=== PATIENT | male | born 1980 | race Caucasian/White ===

== ENCOUNTER 2019-04-29 19:08 | Emergency (ER) | payer OTHER, SELFPAY ==
--- NOTE | 2019-04-29 19:21 | ED.EAR ---
HPI - Ear Problem General Stated complaint: pressure in ear Time Seen by Provider: 04/29/19 19:21 Source: patient and RN notes reviewed History of Present Illness HPI Narrative: Patient is a 38-year-old male that presents the urgent care with complaints of left ear pressure that started 2 days ago. Patient states he has been taking ibuprofen without any relief. Denies of any drainage, fever, nausea, vomiting. No other acute complaints. No acute distress noted. Related Data Allergies Allergy/AdvReac Type Severity Reaction Status Date / Time No Known Allergies Allergy Unknown Verified 07/20/15 11:51 Review of Systems Review of Systems: Narrative: CONSTITUTIONAL: Denies fever, chills, or sweats. EYES: Denies visual changes, redness, or discharge. ENT: Reports of right ear pressure CARDIOVASCULAR: Denies chest pain, palpitations, or edema. RESPIRATORY: Denies cough or dyspnea. GASTROINTESTINAL: Denies abdominal pain, nausea, vomiting, or diarrhea. GENITOURINARY: Denies dysuria or hematuria. SKIN: Denies rash or itching. MUSCULOSKELETAL: Denies back pain, joint pain, or myalgia. NEUROLOGIC: Denies headache, numbness, or weakness. All other systems reviewed are negative, except as documented in HPI. PMFSH Comments At the time of my signature, I reviewed and agree with the nursing past medical, surgical, social, and family history. There is no relevant family history pertinent to the patient complaint. Exam Narrative: Exam Narrative: GENERAL: This is a well-nourished, well-developed patient, in no apparent distress. HEAD: normocephalic, atraumatic. EYES: PERRL. Sclera clear/white. Vision is grossly intact. EARS: External ears normal, auditory canals clear and without drainage, moderate fluid noted behind left TM without otitis, right TMs normal without perforation. Hearing grossly intact. NOSE: External nose normal with no obvious nasal discharge, nares without redness, no rhinorrhea. THROAT: Mucous membranes moist, posterior pharynx clear. NECK: Neck supple CARDIOVASCULAR: Regular rate and rhythm without murmurs, gallops, or rubs. RESPIRATORY: Clear to auscultation. Breath sounds equal bilaterally. No wheezes, rales, or rhonchi. SKIN: warm, intact with no suspicious lesions or rash, good texture and turgor. NEURO: awake, alert, and oriented to person, place and time. There were no obvious focal neurologic abnormalities. EXTREMITIES: No clubbing, cyanosis, or edema. Course Vital Signs Vital signs: Vital Signs Temperature 98.4 F 04/29/19 19:24 Pulse Rate 56 L 04/29/19 19:24 Respiratory Rate 20 04/29/19 19:24 Blood Pressure 120/71 04/29/19 19:24 Pulse Oximetry 98 04/29/19 19:24 Temperature 98.4 F 04/29/19 19:24 Pulse Rate 56 L 04/29/19 19:24 Respiratory Rate 20 04/29/19 19:24 Blood Pressure 120/71 04/29/19 19:24 Pulse Oximetry 98 04/29/19 19:24 Reviewed Medical Decision Making MDM Narrative Medical decision making narrative: Advised the patient to use Claritin or Zyrtec in conjunction with Flonase nasal spray for sinus symptom relief and ear pressure. Use Tylenol/ibuprofen and a warm compress to the left ear for comfort. Follow-up with PCP within 2 to 5 days or for worsening symptoms or failure to improve. Differential Diagnosis Differential Diagnosis: Pneumonia, Allergic Rhinitis, Upper respiratory cough syndrome, Pharyngitis, Sinusitis, Bronchitis, otitis media, viral URI, Asthma/reactive airway disease, COPD, emphysema Vital Signs Vital Signs: Vital Signs Temperature 98.4 F 04/29/19 19:24 Pulse Rate 56 L 04/29/19 19:24 Respiratory Rate 20 04/29/19 19:24 Blood Pressure 120/71 04/29/19 19:24 Pulse Oximetry 98 04/29/19 19:24 Temperature 98.4 F 04/29/19 19:24 Pulse Rate 56 L 04/29/19 19:24 Respiratory Rate 04/29/19 19:24 Blood Pressure 120/71 04/29/19 19:24 Pulse Oximetry 98 04/29/19 19:24 Critical Care Time Critical Care Time Critical Care
[2019-04-29 19:24] VITALS: BP 120/71; PULSE 56; RESP 20; TEMP 36.9; O2SAT 98
== END 2019-04-29 19:56 | disposition home or self-care (01) ==
PROVIDERS: Emergency Provider Nurse Practitioner Family
DX: H92.02 Otalgia, left ear (principal)
CPT/HCPCS: 99201; G0463

== ENCOUNTER 2019-12-14 07:26 | Outpatient (CLI) | payer BC, SELFPAY ==
[2019-12-14 07:39] LABS: Hematocrit 42.2 % (40.0-54.0); Hemoglobin 13.9 g/dL (14.0-18.0); Mean Corpuscular HGB Conc 32.9 g/dL (32.0-36.0); Mean Corpuscular Hemoglobin 29.4 pg (27.0-31.0); Mean Corpuscular Volume 89.2 fL (78.0-102.0); Mean Platelet Volume 10.2 fl (8.7-11.0); Platelet Count Result 150 K/mm3 (150-420); Red Blood Count 4.73 M/mm3 (4.70-6.10); Red Cell Distribution Width 12.5 % (11.6-14.4); White Blood Count 5.9 K/mm3 (4.8-10.8)
[2019-12-14 08:56] LABS: Alanine Aminotransferase 23 U/L (16-63); Alkaline Phosphatase 62 U/L (46-116); Anion Gap 6 mmol/L (8-16); Aspartate Amino Transferase < 10 U/L (15-37); Bilirubin,Total 0.7 mg/dL (0.00-1.00); Blood Urea Nitrogen 19 mg/dL (7-18); Calcium 8.8 mg/dL (8.5-10.1); Carbon Dioxide 28 mmol/L (21-32); Chloride 108 mmol/L (98-108); Cholesterol 157 mg/dL (0-200); Estimated Glomerular Filt Rate > 60; Glucose 87 mg/dL (70-99); HDL Direct 59 mg/dL (40-60); LDL Cholesterol Calculated 79 mg/dL (<130); Osmolality Calculated 295 mOsm/kg (285-295); Potassium 4.3 mmol/L (3.5-5.1); Sodium 142 mmol/L (136-145); Total Protein 6.7 g/dL (6.4-8.2); Triglycerides 95 mg/dL (0-150)
== END 2019-12-14 07:27 | disposition home or self-care (01) ==
LOC: CHSLAB 07:28
PROVIDERS: PCP Family Medicine; Visit Provider Family Medicine
DX: Z00.00 Encounter for general adult medical examination without abnormal findings (principal); R21 Rash and other nonspecific skin eruption
CPT/HCPCS: 36415; 80053; 80061; 85027

== ENCOUNTER 2020-04-05 20:14 | Emergency (ER) | payer BC, SELFPAY ==
[2020-04-05 20:20] VITALS: BP 151/126; PULSE 82; RESP 16; TEMP 36.9; O2SAT 98
--- NOTE | 2020-04-05 20:31 | ED.SKABFB ---
HPI - Skin/Abscess/Foreign Bdy General Chief complaint: Skin/Abscess/Foreign Body Stated complaint: red and swollen leg, possibly infected Time Seen by Provider: 04/05/20 22:25 Source: patient Mode of arrival: ambulatory Limitations: no limitations History of Present Illness HPI narrative: This gentleman comes in due to swelling in left lower leg and erythema developed. Patient states lower leg was mildly swollen over 2 days but has been much worse over the past several hours. He says he recently noticed how swelled it is. Discomfort is moderately severe an ache and ongoing. Related Data Allergies Allergy/AdvReac Type Severity Reaction Status Date / Time No Known Allergies Allergy Unknown Verified 03/12/20 12:12 Review of Systems Constitutional: Constitutional: Reports no additional constitutional complaints Eyes: Eyes: Reports no additional eye complaints ENT: Reports system reviewed and no additional complaints, except as documented Cardiovascular: Cardiovascular: Reports no additional cardiovascular complaints Respiratory: Respiratory: Reports no additional respiratory complaints Gastrointestinal: Gastrointestinal: Reports no additional gastrointestinal complaints Genitourinary: Genitourinary: Reports no additional male genitourinary complaints Musculoskeletal: Musculoskeletal: Reports no additional musculoskeletal complaints Integumentary/Breasts: Skin/Breast: Reports system reviewed and no additional complaints, except as docu Neurologic: Reports system reviewed and no additional complaints, except as documented Psychiatric: Psychiatric: Reports no additional psychiatric complaints Endocrine: Endocrine: Reports no additional endocrine complaints Hematologic/Lymphatic: Hematologic/Lymphatic: Reports no additional hematologic/lymphatic complaints Allergic/Immunologic: Allergic/Immunologic: Reports no additional allergic/immunologic complaints [facility] Past Medical History Medical History No active medical problems No significant medical problems Surgical History Surgical History History of back surgery Family History Family History (Updated 04/05/20 @ 23:07 by Michael Medeiros MD) Father Diabetes mellitus Mother Diabetes mellitus Social History Social History Tobacco type: e-cigarettes/vaping Alcohol intake: never Gender identity (if verbalized by the patient): Male Exam Const: General: no acute distress Orientation/consciousness: patient oriented x3 HENMT: Head: normal to inspection Ears: external ears normal and TM's normal bilaterally General nose exam: Normal external nose present Face and sinus: normal facial exam Eyes: Conjunctivae: conjunctivae normal Neck: Neck: normal visual inspection Chest: Chest palpation & inspection: normal inspection of the chest Resp: Effort & Inspection: normal respiratory effort Cardio: Rate: regular rate Rhythm: regular rhythm GI: Auscultation: normal bowel sounds Other: soft nontender Skin: General skin exam: normal color Neuro: General: patient oriented x3 and moves all extremities Extrem: General: normal to inspection Psych: Appearance: grossly normal Mental Status: mental status grossly normal Thought content: Yes Normal thought content present Course Course Emergency Course: Labs were reviewed with him. He was given ceftriaxone 1 gram IM. Vital Signs Vital signs: Vital Signs Temperature 36.9 C 04/05/20 20:20 Pulse Rate 82 04/05/20 20:20 Respiratory Rate 16 04/05/20 20:20 Blood Pressure 151/126 H 04/05/20 20:20 Pulse Oximetry 98 04/05/20 20:20 Temperature 36.9 C 04/05/20 20:20 Pulse Rate 78 04/05/20 22:23 Respiratory Rate 18 04/05/20 22:23 Blood Pressure 148/97 H 04/05/20 22:23 Pulse Oximetry 95 04/05/20 22:23 MDM - Skin/A
--- NOTE | 2020-04-05 20:44 | PC.NURSE ---
LEFT LOWER LEG MEASURES 51.5 CM. RIGHT LOWER LEG MEASURES 49 CM
--- NOTE | 2020-04-05 21:03 | PC.NURSE ---
RN CONTACTED [facility] AT [facility], FOR OUTPATIENT ULTRASOUND ORDER AND/OR ER TRANSFER TO R/O DVT. AWAITING CALL BACK.
[2020-04-05 21:13] LABS: Basophils Absolute Auto 0.06 K/mm3 (0.00-0.10); Basophils Percent Auto 0.6 % (0.0-1.0); Eosinophils Absolute Auto 0.38 K/mm3 (0.02-0.50); Eosinophils Percent Auto 3.9 % (1.0-6.0); Hematocrit 42.3 % (40.0-54.0); Hemoglobin 14.2 g/dL (14.0-18.0); Immature Granulocyte Absolute 0.04 K/mm3 (0.00-0.00); Immature Granulocyte Percent A 0.4 % (0.0-0.0); Lymphocytes Absolute Auto 1.78 K/mm3 (1.10-4.50); Lymphocytes Percent Auto 18.4 % (18.0-42.0); Mean Corpuscular HGB Conc 33.6 g/dL (32.0-36.0); Mean Corpuscular Hemoglobin 28.7 pg (27.0-31.0); Mean Corpuscular Volume 85.6 fL (78.0-102.0); Mean Platelet Volume 9.8 fl (8.7-11.0); Monocytes Absolute Auto 0.61 K/mm3 (0.10-0.90); Monocytes Percent Auto 6.3 % (2.0-11.0); Neutrophils Absolute Auto 6.8 K/mm3 (1.7-7.2); Neutrophils Percent Auto 70.4 % (50.0-70.0); Platelet Count Result 218 K/mm3 (150-420); Red Blood Count 4.94 M/mm3 (4.70-6.10); White Blood Count 9.7 K/mm3 (4.8-10.8)
[2020-04-05] MEDS: cefTRIAXone 1 GM VIAL IM (21:21)
[2020-04-05] MEDS: LIDOCAINE HCL 1% LOCAL INJ 20 ML VIAL (21:21)
[2020-04-05 21:28] LABS: Alanine Aminotransferase 19 U/L (16-63); Alkaline Phosphatase 61 U/L (46-116); Anion Gap 7 mmol/L (8-16); Aspartate Amino Transferase 11 U/L (15-37); Bilirubin,Total 0.5 mg/dL (0.00-1.00); Blood Urea Nitrogen 22 mg/dL (7-18); Calcium 9.1 mg/dL (8.5-10.1); Carbon Dioxide 27 mmol/L (21-32); Chloride 103 mmol/L (98-108); Estimated CRCL calculation 107 ml/min; Estimated Glomerular Filt Rate > 60; Glucose 112 mg/dL (70-99); Osmolality Calculated 288 mOsm/kg (285-295); Potassium 3.9 mmol/L (3.5-5.1); Sodium 137 mmol/L (136-145); Total Protein 7.7 g/dL (6.4-8.2)
[2020-04-05 22:23] VITALS: BP 148/97; PULSE 78; RESP 18; O2SAT 95
== END 2020-04-05 22:34 | disposition home or self-care (01) ==
PROVIDERS: Emergency Provider Emergency Medicine; PCP Family Medicine
DX: L03.116 Cellulitis of left lower limb (principal)
CPT/HCPCS: 36415; 80053; 85025; 85380; 87040; 96372; 99283; J0696

== ENCOUNTER 2020-04-08 09:44 | Outpatient (CLI) | payer BC, SELFPAY ==
--- NOTE | ~2020-04-08 | US_ITS ---
EXAMINATION: US venous doppler [facility] DATE: 04/08/2020 11:03 INDICATION: Deep vein thrombosis. TECHNIQUE: Grayscale ultrasound images without and with compression and Doppler ultrasound images of the left lower extremity veins were obtained. COMPARISON: None. FINDINGS: The visualized portions of left common femoral vein, profunda (deep) femoral vein, femoral vein, popl iteal vein, peroneal veins, posterior tibial veins, and greater saphenous vein outflow are patent. IMPRESSION: 1. No deep venous thrombosis. Reviewed, dictated and finalized at location B. NUMBERER
== END 2020-04-08 09:45 | disposition home or self-care (01) ==
LOC: CHSIMG 09:46
PROVIDERS: PCP Family Medicine; Visit Provider Emergency Medicine
DX: I82.409 Acute embolism and thrombosis of unspecified deep veins of unspecified lower extremity (principal)
CPT/HCPCS: 93971

== ENCOUNTER 2020-09-29 21:50 | Emergency (ER) | payer OTHER, SELFPAY ==
[2020-09-29 22:00] VITALS: BP 134/87; PULSE 60; RESP 20; TEMP 36.3; O2SAT 99
--- NOTE | 2020-09-29 22:10 | ED.SKABFB ---
HPI - Skin/Abscess/Foreign Bdy General Chief complaint: Skin/Abscess/Foreign Body Stated complaint: hives Time Seen by Provider: 09/29/20 22:10 Source: patient and family Mode of arrival: ambulatory Limitations: no limitations History of Present Illness HPI narrative: Patient comes in with diffuse macular rash and some uticaria on chest, abdomen, arms and legs. Back and face are spared. Moderately severe itchy rash with mostly macular component, but also with urticaria component, started last pm about 830pm when he was watching a movie and is ongoing, becoming worse with time. Rash was causing real severe itching by 930pm. This morning when he woke he noticed rash all over. He took benadryl 50mg at 4pm, and 50mg at 730-8pm. He has been using cortisone 1% OINTMENT. These have not improved rash at all, despite benadryl and topical steroid he has used. complaint: rash Onset (ago): hour(s) Tetanus up to date: yes Location: generalized Severity: moderate Quality: constant and pruritic Relieving factors: none Exacerbating factors: other (sweating) Context: other (developed after he ate out at a pizza place) Associated symptoms: denies other symptoms Treatments prior to arrival: Benadryl and corticosteroid Related Data Allergies Allergy/AdvReac Type Severity Reaction Status Date / Time No Known Allergies Allergy Unknown Verified 04/08/20 08:52 Review of Systems Constitutional: Constitutional: Reports no additional constitutional complaints Eyes: Eyes: Reports no additional eye complaints ENT: Reports system reviewed and no additional complaints, except as documented Cardiovascular: Cardiovascular: Reports no additional cardiovascular complaints Respiratory: Respiratory: Reports no additional respiratory complaints Gastrointestinal: Gastrointestinal: Reports no additional gastrointestinal complaints Genitourinary: Genitourinary: Reports no additional male genitourinary complaints Musculoskeletal: Musculoskeletal: Reports no additional musculoskeletal complaints Integumentary/Breasts: Skin/Breast: Reports system reviewed and no additional complaints, except as docu Neurologic: Reports system reviewed and no additional complaints, except as documented Psychiatric: Psychiatric: Reports no additional psychiatric complaints Endocrine: Endocrine: Reports no additional endocrine complaints Hematologic/Lymphatic: Hematologic/Lymphatic: Reports no additional hematologic/lymphatic complaints Allergic/Immunologic: Allergic/Immunologic: Reports as per [facility] Past Medical History Medical History (Updated 09/30/20 @ 01:15 by Michael Medeiros MD) Cellulitis No active medical problems No significant medical problems Surgical History Surgical History History of back surgery Family History Family History Father Diabetes mellitus Mother Diabetes mellitus Social History Social History Smoking status: Current every day smoker Tobacco type: e-cigarettes/vaping Alcohol intake: never Gender identity (if verbalized by the patient): Male Exam Const: General: alert Orientation/consciousness: patient oriented x3 HENMT: Head: normal to inspection Ears: external ears normal and TM's normal bilaterally General nose exam: Normal external nose present Face and sinus: normal facial exam Mouth: Yes Normal oral and palatal mucosa present Throat: posterior oropharynx normal Eyes: Conjunctivae: conjunctivae normal Neck: Neck: normal visual inspection Chest: Chest palpation & inspection: normal inspection of the chest Resp: Effort & Inspection: normal respiratory effort Auscultation: clear to auscultation bilaterally Cardio: Rate: regular rate Rhythm: regular rhythm GI: Auscultation: normal bowel sounds (soft non tender) : Male General Exam: Yes
[2020-09-29] MEDS: EPINEPHrine HCL INJ 1 MG/ML AMPUL 0.5 MG IM (22:23)
[2020-09-29] MEDS: FAMOTIDINE 20 MG TABLET 40 MG PO (22:23)
[2020-09-29] MEDS: diphenhydrAMINE HCl INJ 50 MG/ML VIAL 25 MG IM (22:23)
[2020-09-29] MEDS: DEXAMETHASONE SOD PHOS INJ 4 MG/ML VIAL 12 MG IM (22:23)
[2020-09-29 23:27] VITALS: BP 138/79; PULSE 67; RESP 20; TEMP 36.3; O2SAT 99
== END 2020-09-29 23:39 | disposition home or self-care (01) ==
PROVIDERS: Emergency Provider Emergency Medicine; PCP Family Medicine
DX: T78.40XA Allergy, unspecified, initial encounter (principal)
CPT/HCPCS: 96372; 99283; 99284; A9270; J0171; J1100; J1200

== ENCOUNTER 2020-10-10 07:07 | Outpatient (CLI) | payer OTHER, SELFPAY | END 2020-10-10 07:08 | disposition home or self-care (01) | LOC: CHSLAB 07:11 | PROVIDERS: PCP Family Medicine; Visit Provider Nurse Practitioner Family | DX: T78.40XA Allergy, unspecified, initial encounter (principal) | CPT/HCPCS: 36415; 82785; 86003 ==

== ENCOUNTER 2020-10-31 10:36 | Outpatient (CLI) | payer SELFPAY | END 2020-10-31 10:37 | disposition home or self-care (01) | LOC: CHSOUTPT 10:39 | PROVIDERS: PCP Nurse Practitioner Family; Visit Provider Nurse Practitioner Family | DX: E66.9 Obesity, unspecified (principal) | CPT/HCPCS: 99199 ==

== ENCOUNTER 2021-01-15 16:56 | Outpatient (NON) | payer OTHER, SELFPAY | END 2021-01-15 16:57 | disposition home or self-care (01) | LOC: CHSLAB 16:57 | PROVIDERS: Visit Provider Nurse Practitioner Family | DX: H60.02 Abscess of left external ear (principal) | CPT/HCPCS: 87070; 87205 ==

== ENCOUNTER 2021-09-27 07:59 | Outpatient (CLI) | payer BC, OTHER, SELFPAY ==
[2021-09-27 08:14] LABS: Basophils Absolute Auto 0.06 K/mm3 (0.00-0.10); Basophils Percent Auto 1.2 % (0.0-1.0); Eosinophils Absolute Auto 0.37 K/mm3 (0.02-0.50); Eosinophils Percent Auto 7.7 % (1.0-6.0); Hematocrit 47.3 % (40.0-54.0); Hemoglobin 14.3 g/dL (14.0-18.0); Immature Granulocyte Absolute 0.02 K/mm3 (0.00-0.00); Immature Granulocyte Percent A 0.4 % (0.0-0.0); Lymphocytes Absolute Auto 1.27 K/mm3 (1.10-4.50); Lymphocytes Percent Auto 26.3 % (18.0-42.0); Mean Corpuscular HGB Conc 30.2 g/dL (32.0-36.0); Mean Corpuscular Hemoglobin 29.4 pg (27.0-31.0); Mean Corpuscular Volume 97.3 fL (78.0-102.0); Monocytes Absolute Auto 0.43 K/mm3 (0.10-0.90); Monocytes Percent Auto 8.9 % (2.0-11.0); Neutrophils Absolute Auto 2.7 K/mm3 (1.7-7.2); Neutrophils Percent Auto 55.5 % (50.0-70.0); Platelet Count Result 108 K/mm3 (150-420); Red Blood Count 4.86 M/mm3 (4.70-6.10); Red Cell Distribution Width 13.5 % (11.6-14.4); White Blood Count 4.8 K/mm3 (4.8-10.8)
[2021-09-27 09:06] LABS: Alanine Aminotransferase 23 U/L (16-63); Albumin Level 4.1 g/dL (3.4-5.0); Alkaline Phosphatase 70 U/L (46-116); Anion Gap 10 mmol/L (8-16); Aspartate Amino Transferase 13 U/L (15-37); Bilirubin,Total 0.5 mg/dL (0.00-1.00); Blood Urea Nitrogen 25 mg/dL (7-18); Carbon Dioxide 24 mmol/L (21-32); Chloride 107 mmol/L (98-108); Glucose 98 mg/dL (70-99); HDL Direct 51 mg/dL (40-60); Osmolality Calculated 296 mOsm/kg (285-295); Potassium 4.5 mmol/L (3.5-5.1); Sodium 141 mmol/L (136-145); Total Protein 6.9 g/dL (6.4-8.2); Triglycerides 89 mg/dL (0-150)
[2021-09-27 09:17] LABS: Cholesterol 180 mg/dL (0-200); Estimated Glomerular Filt Rate > 60; LDL Cholesterol Calculated 111 mg/dL (<130)
[2021-09-30 20:22] LABS: Vitamin D 25 Hydroxy 32 ng/mL (30-100)
== END 2021-09-27 08:00 | disposition home or self-care (01) ==
LOC: CHSLAB 08:01
PROVIDERS: PCP Nurse Practitioner Family; Visit Provider Nurse Practitioner Family
DX: Z00.00 Encounter for general adult medical examination without abnormal findings (principal); R53.83 Other fatigue
CPT/HCPCS: 36415; 80053; 80061; 82306; 85025

== ENCOUNTER 2021-11-08 09:09 | Outpatient (CLI) | payer BC, SELFPAY ==
[2021-11-08 09:20] LABS: Basophils Absolute Auto 0.05 K/mm3 (0.00-0.10); Eosinophils Absolute Auto 0.26 K/mm3 (0.02-0.50); Eosinophils Percent Auto 5.4 % (1.0-6.0); Hematocrit 40.9 % (40.0-54.0); Hemoglobin 13.8 g/dL (14.0-18.0); Immature Granulocyte Absolute 0.01 K/mm3 (0.00-0.00); Immature Granulocyte Percent A 0.2 % (0.0-0.0); Lymphocytes Absolute Auto 1.31 K/mm3 (1.10-4.50); Lymphocytes Percent Auto 27.3 % (18.0-42.0); Mean Corpuscular HGB Conc 33.7 g/dL (32.0-36.0); Mean Corpuscular Hemoglobin 29.7 pg (27.0-31.0); Mean Platelet Volume 9.9 fl (8.7-11.0); Monocytes Percent Auto 8.3 % (2.0-11.0); Neutrophils Absolute Auto 2.8 K/mm3 (1.7-7.2); Neutrophils Percent Auto 57.8 % (50.0-70.0); Platelet Count Result 170 K/mm3 (150-420); Red Blood Count 4.65 M/mm3 (4.70-6.10); Red Cell Distribution Width 12.9 % (11.6-14.4); White Blood Count 4.8 K/mm3 (4.8-10.8)
== END 2021-11-08 09:10 | disposition home or self-care (01) ==
LOC: CHSLAB 09:11
PROVIDERS: PCP Nurse Practitioner Family; Visit Provider Nurse Practitioner Family
DX: D69.6 Thrombocytopenia, unspecified (principal)
CPT/HCPCS: 36415; 85025

== ENCOUNTER 2023-05-04 14:02 | Outpatient (CLI) | payer BC, SELFPAY ==
[2023-05-04 14:20] LABS: Basophils Absolute Auto 0.08 K/mm3 (0.00-0.10); Basophils Percent Auto 0.9 % (0.0-1.0); Eosinophils Absolute Auto 0.39 K/mm3 (0.02-0.50); Eosinophils Percent Auto 4.6 % (1.0-6.0); Hemoglobin 14.1 g/dL (14.0-18.0); Immature Granulocyte Absolute 0.03 K/mm3 (0.00-0.00); Immature Granulocyte Percent A 0.4 % (0.0-0.0); Lymphocytes Absolute Auto 1.74 K/mm3 (1.10-4.50); Lymphocytes Percent Auto 20.6 % (18.0-42.0); Mean Corpuscular HGB Conc 33.6 g/dL (32.0-36.0); Mean Corpuscular Hemoglobin 28.8 pg (27.0-31.0); Mean Corpuscular Volume 85.7 fL (78.0-102.0); Mean Platelet Volume 9.9 fl (8.7-11.0); Monocytes Absolute Auto 0.61 K/mm3 (0.10-0.90); Monocytes Percent Auto 7.2 % (2.0-11.0); Neutrophils Absolute Auto 5.6 K/mm3 (1.7-7.2); Neutrophils Percent Auto 66.3 % (50.0-70.0); Platelet Count Result 208 K/mm3 (150-420); White Blood Count 8.4 K/mm3 (4.8-10.8)
[2023-05-04 14:25] LABS: Hemoglobin A1C 5.2 % (<5.7)
[2023-05-04 14:55] LABS: Alanine Aminotransferase 32 U/L (16-63); Alkaline Phosphatase 81 U/L (46-116); Anion Gap 14 mmol/L (8-16); Aspartate Amino Transferase 20 U/L (15-37); Bilirubin,Total 0.4 mg/dL (0.00-1.00); Blood Urea Nitrogen 20 mg/dL (7-18); Carbon Dioxide 24 mmol/L (21-32); Chloride 101 mmol/L (98-108); Estimated Glomerular Filt Rate > 60; Glucose 102 mg/dL (70-99); Osmolality Calculated 290 mOsm/kg (285-295); Potassium 4.1 mmol/L (3.5-5.1); Sodium 139 mmol/L (136-145); Total Protein 7.1 g/dL (6.4-8.2)
[2023-05-04 15:06] LABS: Thyroid Stimulating Hormone Reflex 2.23 u/IU/mL (0.36-3.74)
[2023-05-07 11:40] LABS: Vitamin D 1,25 (OH)2 Total 17 pg/mL (18-72); Vitamin D2 1,25 (OH)2 <8 pg/mL; Vitamin D3 1,25 (OH)2 17 pg/mL
== END 2023-05-04 14:03 | disposition home or self-care (01) ==
PROVIDERS: PCP Family Medicine; Visit Provider Family Medicine
DX: Z00.00 Encounter for general adult medical examination without abnormal findings (principal); E11.9 Type 2 diabetes mellitus without complications; E55.9 Vitamin D deficiency, unspecified
CPT/HCPCS: 36415; 80053; 82652; 83036; 84443; 85025

== ENCOUNTER 2024-01-24 08:35 | Outpatient (CLI) | payer BC, SELFPAY ==
[2024-01-24 09:50] LABS: Hemoglobin A1C 5.1 % (<5.7)
[2024-01-24 09:52] LABS: Cholesterol 159 mg/dL (0-200); HDL Direct 48 mg/dL (40-60); LDL Cholesterol Calculated 92 mg/dL (<130); Triglycerides 93 mg/dL (0-150)
[2024-01-26 07:29] LABS: Vitamin D 25 Hydroxy 30 ng/mL (30-100)
== END 2024-01-24 08:36 | disposition home or self-care (01) ==
LOC: CHSLAB 08:39
PROVIDERS: PCP Family Medicine
DX: K21.9 Gastro-esophageal reflux disease without esophagitis (principal); E66.01 Morbid (severe) obesity due to excess calories; G40.909 Epilepsy, unspecified, not intractable, without status epilepticus; E55.9 Vitamin D deficiency, unspecified; Z13.1 Encounter for screening for diabetes mellitus; R73.01 Impaired fasting glucose; Z68.42 Body mass index [BMI] 45.0-49.9, adult
CPT/HCPCS: 36415; 80061; 82306; 83036

== ENCOUNTER 2024-07-25 11:52 | Outpatient (CLI) | payer BC, OTHER, SELFPAY ==
--- NOTE | ~2024-07-25 | XR_ITS ---
XR foot RT min 3V Ordering provider: Carlos Karimi APRN History: . MEDIAL ARCH PAIN,NKI [id number] . Comparison: None. FINDINGS: BONES: No acute fracture or dislocation. Sclerotic areas seen in the distal metaphysis of the proxima l phalanx of the right big toe. 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 No tarsal coa lition. SOFT TISSUES: Normal. Calcaneal spur. IMPRESSION: No acute osseous abnormality of the right foot. Reviewed, dictated and finalized at location A.
== END 2024-07-25 11:53 | disposition home or self-care (01) ==
LOC: CHSIMG 11:55
PROVIDERS: PCP Family Medicine; Visit Provider Family Medicine
DX: M79.671 Pain in right foot (principal)
CPT/HCPCS: 73630